=== PATIENT | male | born 1995 | race African-American/Black ===

== ENCOUNTER 2022-02-17 13:25 | Emergency (ER) | payer MEDICAID, OTHER ==
[~2022-02-17] VITALS: Ht 175.3 cm; Wt 105.0 kg
[~2022-02-17 13:25] MED LIST: ALBUTEROL
[2022-02-17] MEDS ORDERED: IBUPROFEN 600MG TABLET PO ONE (20:45)
[2022-02-17] MEDS ORDERED: ALBUTEROL 6.7GM HFA INHALER ORI ONE (20:45)
[2022-02-17 20:48] VITALS: BP 159/110
[2022-02-17] MEDS ORDERED: ALBU6.7H3 INH (22:20)
== END 2022-02-17 22:30 | disposition home or self-care (01) ==
LOC: ER 13:25
DX: R05.9 Cough, unspecified (principal); R06.02 Shortness of breath
CPT/HCPCS: 71045; 93005; 94640; 99283; Z7610

== ENCOUNTER 2022-04-18 13:21 | Emergency (ER) | payer OTHER, MEDICAID ==
[~2022-04-18] VITALS: Ht 188 cm; Wt 128.0 kg
[~2022-04-18 13:21] MED LIST changes: +ALBU6.7H3 INH
[2022-04-18] MEDS ORDERED: VISCOUS LIDOCAINE 2% 15 ML UDC MM STA (14:41)
[2022-04-18] MEDS ORDERED: KETOROLAC 60MG/2ML VIAL IM ONE (14:45)
[2022-04-18] MEDS ORDERED: DEXAMETHASONE 10 MG/ML VIAL IM ONE (14:45)
[2022-04-18 15:31] VITALS: BP 150/95
[2022-04-18] MEDS ORDERED: PENICILLIN G BENZATHINE 1,200,000 UNITS/2ML SYR IM ONE (19:00)
[2022-04-18] MEDS ORDERED: PENICILLIN G BENZATHINE 1,200,000 UNITS/2ML SYR IM NR (19:15)
== END 2022-04-18 20:47 | disposition home or self-care (01) ==
LOC: ER 13:31
DX: J02.9 Acute pharyngitis, unspecified (principal); J45.909 Unspecified asthma, uncomplicated
CPT/HCPCS: 87070; 87430; 96372; 99284; J0561; J1100; J1885